=== PATIENT | male | born 1980 | race Caucasian/White ===

== ENCOUNTER 2017-10-23 18:03 | Emergency (ER) | payer SELFPAY ==
[~2017-10-23] VITALS: Ht 177.8 cm; Wt 67.0 kg
[~2017-10-23 18:03] MED LIST: ALPRAZOLAM1 MG PO; AMLODIPINE BESYL5 MG PO; CLONAZEPAM1 MG PO; CLONIDINE HCL0.2 MG PO; HYDROCODON-ACE1 EAC7 PO; HYDROCODON-ACE1 EAC8 PO; KEFLEX500 MG PO; NAPROSYN500 MG PO; NAPROXEN500 MG PO; PERCOCET 5/31 TABLET PO; XANAX0.5 MG PO; ZOFRAN ODT4 MG PO
[2017-10-23] MEDS ORDERED: NARCAN4 MG NS (22:33)
[2017-10-23] MEDS ORDERED: ZOFRAN4 MG PO (22:45)
[2017-10-23 22:57] VITALS: BP 109/71
== END 2017-10-23 22:58 | disposition home or self-care (01) ==
LOC: EME → EDBD 18:03 → EME 18:03
DX: T40.1X1A Poisoning by heroin, accidental (unintentional), initial encounter (principal); F32.9 Major depressive disorder, single episode, unspecified; F41.9 Anxiety disorder, unspecified; Z88.6 Allergy status to analgesic agent; F17.200 Nicotine dependence, unspecified, uncomplicated
CPT/HCPCS: 93005; 99281; 99283